=== PATIENT | female | born 1970 | race Caucasian/White ===

== ENCOUNTER 2017-06-01 05:21 | Emergency (ER) | payer OTHER, SELFPAY ==
[2017-06-01] MEDS ORDERED: Ondansetron ODT 4 MG TAB ONE (06:37)
[2017-06-01] MEDS ORDERED: predniSONE 20 MG TAB ONE (06:37)
[2017-06-01] MEDS ORDERED: Ketorolac Tromethamine 30 MG/ML VIAL ONE (06:37)
--- NOTE | 2017-06-01 07:37 | RAD ---
TWO VIEWS OF CHEST: DTAE: 06/01/17. COMPARISON: 02/06/05. HISTORY: Cough and fever. FINDINGS: There is no pneumothorax, pleural fluid, focal consolidation, or alveolar edema. Heart and mediastin al contours are grossly unremarkable. IMPRESSION: No acute findings. POS: [facility]
== END 2017-06-01 07:29 | disposition home or self-care (01) ==
LOC: ERS 05:21
DX: J40 Bronchitis, not specified as acute or chronic (principal); R05 Cough; J02.9 Acute pharyngitis, unspecified; K21.9 Gastro-esophageal reflux disease without esophagitis; J44.9 Chronic obstructive pulmonary disease, unspecified; Z79.899 Other long term (current) drug therapy
CPT/HCPCS: 71046; 87081; 87430; 94640; 96361; 96374; J1885; J7506; J7620; Q0162

== ENCOUNTER 2018-07-18 15:03 | Emergency (ER) | payer OTHER ==
--- NOTE | 2018-07-18 16:25 | RAD ---
LEFT FOREARM TWO VIEWS: History: Left arm injury. FINDINGS/IMPRESSION: Small pockets of gas overlying the volar soft tissues at the level of the mid ulnar shaft. No acute osseous abnormalities or radiopaque foreign bodies are apparent. POS: [facility]
[2018-07-18] MEDS ORDERED: Adacel (T-DAP) 0.5 ML SYRINGE ONE (16:42)
[2018-07-18] MEDS ORDERED: Ibuprofen 200 MG TAB ONE (16:42)
== END 2018-07-18 17:07 | disposition home or self-care (01) ==
LOC: ERS 15:03
DX: S51.812A Laceration without foreign body of left forearm, initial encounter (principal); J44.9 Chronic obstructive pulmonary disease, unspecified; K21.9 Gastro-esophageal reflux disease without esophagitis; W26.0XXA Contact with knife, initial encounter
CPT/HCPCS: 12001; 90471; 90715

== ENCOUNTER 2018-07-28 11:11 | Emergency (ER) | payer OTHER ==
--- NOTE | 2018-07-28 12:18 | RAD ---
PA AND LATERAL VIEWS CHEST: Date: 07/28/18 HISTORY: Cough and shortness of breath. FINDINGS/IMPRESSION: Two views of the chest demonstrate the lungs to be well aerated. No evidence of active intrathoracic disease seen. No evidence of effusions, pneumonia, or pneumothorax seen. POS: [facility]
== END 2018-07-28 12:30 | disposition home or self-care (01) ==
LOC: SCSER 11:11
DX: J45.909 Unspecified asthma, uncomplicated (principal); K21.9 Gastro-esophageal reflux disease without esophagitis; J44.9 Chronic obstructive pulmonary disease, unspecified
CPT/HCPCS: 71046

== ENCOUNTER 2018-09-18 14:48 | Outpatient (CLI) | payer OTHER ==
--- NOTE | 2018-09-18 15:52 | MMO ---
Bilateral MAMMO Bilat Screen DDI+GHANSHYAM. CLINICAL HISTORY: Patient is 48 years old and is seen for screening. The patient has no family history of breast cancer. The patient has no personal history of cancer. VIEWS: The views performed were: bilateral craniocaudal with tomosynthesis and bilateral mediolateral oblique with tomosynthesis. FILMS COMPARED: The present examination has been compared to prior imaging studies performed at [facility] on 09/26/2013 and 06/10/2016, and at [facility] on 07/23/2011. MAMMOGRAM FINDINGS: There are scattered fibroglandular densities. There are no suspicious masses, suspicious calcifications, or new areas of architectural distortion. IMPRESSION: THERE IS NO MAMMOGRAPHIC EVIDENCE OF MALIGNANCY. A ROUTINE FOLLOW-UP MAMMOGRAM IN 1 YEAR IS RECOMMENDED. THE RESULTS OF THIS EXAM WERE SENT TO THE PATIENT. ACR BI-RADS Category 1 - Negative MAMMOGRAPHY NOTE: 1. A negative mammogram report should not delay a biopsy if a dominant of clinically suspicious mass is present. 2. Approximately 10% to 15% of breast cancers are not detected by mammography. 3. Adenosis and dense breasts may obscure an underlying neoplasm.
== END 2018-09-18 14:49 | disposition home or self-care (01) ==
LOC: BICMAMMO 14:48
PROVIDERS: ATTEND Family Medicine
DX: Z12.31 Encounter for screening mammogram for malignant neoplasm of breast (principal)
CPT/HCPCS: 77063; 77067

== ENCOUNTER 2018-12-01 10:24 | Day surgery (SDC) | payer OTHER ==
[2018-11-30 10:21] VITALS: BMI 35.4
--- NOTE | 2018-12-01 11:48 | RAD ---
XR Lumbar Spine 2 Or 3 View HISTORY: Back pain preop COMPARISON: None. FINDINGS: The vertebral bodies are normal in height. Disc spaces appear well preserved. There is no a bnormal motion on the flexion or extension views. Mild facet hypertrophic changes are present. IMPRESSION: No abnormal motion on flexion-extension views. No significant disc space narrowing.
[2018-12-01] MEDS ORDERED: Ondansetron PF 4 MG/2 ML Vial ONE (14:37)
--- NOTE | 2018-12-01 16:47 | MRI ---
MRI OF THE LUMBAR SPINE PERFORMED WITHOUT CONTRAST ENHANCEMENT: 12/01/18 HISTORY: Back pain and radicular symptoms. The vertebral bodies are normal in height. There are disc desiccation changes at L3-4 and L4-5. There is no significant periaortic adenopathy and the visualized portions of the kidneys are normal. T12-L1: Unremarkable. L1-2: Unremarkable. L2-3: There is some mild facet changes but no canal or foraminal stenosis. L3-4: Degenerative facet changes are associated with some borderline canal narrowing. L4-5: There is annular disc bulge with some mild to moderate degree of canal stenosis, mainly related to the degenerative facet changes. There is also mild left sided foraminal narrowing. L5-S1: No significant canal or foraminal stenosis. IMPRESSION: Findings as noted above. Changes appear most significant at L4-5. POS: [facility]
== END 2018-12-01 15:20 | disposition home or self-care (01) ==
LOC: SDC/OP 10:24
PROVIDERS: ATTEND Nurse Practitioner Family
DX: M48.061 Spinal stenosis, lumbar region without neurogenic claudication (principal); M54.16 Radiculopathy, lumbar region; Z88.0 Allergy status to penicillin; Z88.6 Allergy status to analgesic agent; Z88.8 Allergy status to other drugs, medicaments and biological substances; Z79.1 Long term (current) use of non-steroidal anti-inflammatories (NSAID)
CPT/HCPCS: 72100; 72148; J2405

== ENCOUNTER 2019-01-05 20:51 | Emergency (ER) | payer OTHER ==
[~2019-01-05 20:51] MED LIST: Iopamidol 300 61% 100 ML VIAL FS ONE
[2019-01-05] MEDS ORDERED: Ondansetron PF 4 MG/2 ML Vial ONE (21:28)
[2019-01-05 21:48] LABS: Hemoglobin 13.8 g/dL (12.0-16.0); Mean Corpuscular HGB CONC 33.1 g/dL (32.0-36.0); Mean Corpuscular Hemoglobin 28.9 pg (27.0-31.0); Mean Corpuscular Volume 87.5 fL (78.0-98.0); Mean Platelet Volume 7.3 fL (7.4-10.4); Platelet Count 207 thou/uL (130-400); RBC Distribution Width 12.3 % (11.5-14.5); Red Blood Cell (RBC) Count 4.77 mill/uL (4.20-5.40)
[2019-01-05 21:49] LABS: ALT (SGPT) 28 U/L (8-55); AST (SGOT) 25 U/L (5-34); Albumin 4.1 g/dL (3.5-5.0); Alkaline Phosphatase 64 U/L (40-150); Anion Gap 13 mmol/L (10-20); BUN (Urea Nitrogen) 18 mg/dL (7.0-18.7); Band 1 % (5-11); Bilirubin, Total 0.4 mg/dL (0.2-1.2); CK (CPK) 306 U/L (29-168); Calc. Creatinine Clearance 0 mL/min (70-130); Carbon Dioxide 23 mmol/L (22-29); Chloride 109 mmol/L (98-107); Estimated GFR-MDRD 83; Globulin 2.6 g/dL (2.4-3.5); Glucose 101 mg/dL (70-105); Lipase 15 U/L (8-78); Lymphocytes 37 % (21-51); MDiff Complete? YES; Monocytes 4 % (0-10); Neutrophil 58 % (42-75); Potassium 3.7 mmol/L (3.5-5.1); Protein, Total 6.7 g/dL (6.0-8.3); Sodium 141 mmol/L (136-145)
[2019-01-05 22:42] LABS: Bilirubin Negative (Negative); Blood, Urine Moderate (Negative); Clarity Clear (Clear); Glucose, Urine (Dipstick) Negative (Negative); Leukocyte Negative (Negative); Nitrite Negative (Negative); Protein, Urine (Dipstick) Negative (Neg-Trace); Urobilinogen 0.2 mg/dL (Less than 2)
[2019-01-05 22:43] LABS: Bacteria/HPF None Seen HPF (None Seen); Mucous/LPF 1+ LPF (<2+); Squamous Epithelial 0-3 HPF (0-3); WBC/HPF 0-3 HPF (0-3)
--- NOTE | 2019-01-05 22:53 | CT ---
CT ABDOMEN WITH CONTRAST CT PELVIS WITH CONTRAST: DATE: 01/05/19 at 10:21 p.m. HISTORY: 48-year-old female with left sided abdominal pain, nausea, and vomiting. COMPARISON: 07/24/13. TECHNIQUE: IV injection of iodinated contrast media: 90 mL of Isovue 300. Oral contrast media: Not administered. FINDINGS: There is a new finding of a few bilateral small renal calculi. The largest is a 4 x 3 x 4 mm calculus at a right renal mid pole calyx. There are two 2 mm right renal calculi, one at the right lower pole and one at right upper-mid pole. There is a tiny 2 mm left renal upper pole calculus. No hydronephro sis. No signs of pyelonephritis. Abdominal aorta, adrenals, pancreas, spleen, liver, appendix, and ur inary bladder, are normal. Surgical clips at the gallbladder fossa. Sigmoid colonic diverticula. No d efinite evidence of diverticulitis. No small bowel dilation. No ascites or pneumoperitoneum. There is questionable diffuse mural edema of the colon, from hepatic flexure to rectum, but it is difficult t o definitively diagnose colitis because the colonic lumen is collapsed. IMPRESSION: 1. Questionable colitis. Recommend clinical correlation (is there diarrhea?). 2. No colonic diverticulitis. 3. Nephrolithiasis consisting of a few small bilateral renal calculi. No obstructive uropathy. 4. Status post cholecystectomy. DESHAWN Crawford POS: [facility]
[2019-01-05] MEDS ORDERED: Dicyclomine 20 MG TAB ONE (23:05)
== END 2019-01-05 23:12 | disposition home or self-care (01) ==
LOC: SCSER 20:51
DX: R11.2 Nausea with vomiting, unspecified (principal); R19.7 Diarrhea, unspecified; R31.9 Hematuria, unspecified; J44.9 Chronic obstructive pulmonary disease, unspecified; K21.9 Gastro-esophageal reflux disease without esophagitis
CPT/HCPCS: 74177; 80053; 81003; 81015; 82550; 83690; 85025; 96361; 96374; J2405

== ENCOUNTER 2019-04-02 00:34 | Emergency (ER) | payer OTHER ==
[2019-04-02] MEDS ORDERED: Ketorolac Tromethamine 30 MG/ML VIAL ONE (00:50)
[2019-04-02 01:18] LABS: Bilirubin Negative (Negative); Blood, Urine Small (Negative); Clarity Clear (Clear); Glucose, Urine (Dipstick) Negative (Negative); Leukocyte Negative (Negative); Nitrite Negative (Negative); Protein, Urine (Dipstick) Negative (Neg-Trace); Urobilinogen 0.2 mg/dL (Less than 2)
[2019-04-02 01:19] LABS: Pregnancy Test - Urine (BHCG) Negative (Negative); Pregu Control Background? CLEAR/WHITE (CLR/WHITE); Pregu Control Bar Appear? YES (CONTROL BAR); Specific Gravity 1.025 (1.002-1.036)
[2019-04-02 01:21] LABS: Squamous Epithelial 0-3 HPF (0-3); WBC/HPF 0-3 HPF (0-3)
[2019-04-02 01:22] LABS: #Basophils 0.1 thou/uL (0.0-0.2); #Eosinphils 0.2 thou/uL (0.0-0.7); #Lymphocytes 3.2 thou/uL (1.20-3.40); #Monocytes 0.6 thou/uL (0.11-0.59); %Basophils 1.3 % (0.0-1.0); %Eosinophils 2.7 % (0.0-10.0); %Lymphocytes 44.9 % (21.0-51.0); %Monocytes 8.6 % (0.0-10.0); %Neutrophils 42.5 % (42.0-75.0); Bacteria/HPF Rare-Few HPF (None Seen); Hemoglobin 14.2 g/dL (12.0-16.0); Mean Corpuscular Hemoglobin 29.4 pg (27.0-31.0); Mean Corpuscular Volume 89.2 fL (78.0-98.0); Mean Platelet Volume 7.5 fL (7.4-10.4); Platelet Count 226 thou/uL (130-400); RBC Distribution Width 12.4 % (11.5-14.5); Red Blood Cell (RBC) Count 4.84 mill/uL (4.20-5.40); White Blood Cell (WBC) Count 7.1 thou/uL (4.8-10.8)
[2019-04-02 01:30] LABS: ALT (SGPT) 36 U/L (8-55); AST (SGOT) 31 U/L (5-34); Albumin 4.2 g/dL (3.5-5.0); Alkaline Phosphatase 78 U/L (40-110); Anion Gap 14 mmol/L (10-20); BUN (Urea Nitrogen) 20 mg/dL (7.0-18.7); Bilirubin, Total 0.2 mg/dL (0.2-1.2); Calc. Creatinine Clearance 0 mL/min (70-130); Calcium 10.1 mg/dL (7.8-10.44); Carbon Dioxide 23 mmol/L (22-29); Chloride 110 mmol/L (98-107); Estimated GFR-MDRD 85; Globulin 2.6 g/dL (2.4-3.5); Glucose 122 mg/dL (70-105); Lipase 26 U/L (8-78); Potassium 4.3 mmol/L (3.5-5.1); Protein, Total 6.8 g/dL (6.0-8.3); Sodium 143 mmol/L (136-145)
[2019-04-02] MEDS ORDERED: Ondansetron PF 4 MG/2 ML Vial ONE (01:39)
[2019-04-02] MEDS ORDERED: Mag-Al Plus 1200 MG/1200 MG/120 MG/30 ML UDCUP ONE (02:13)
[2019-04-02] MEDS ORDERED: Lidocaine Viscous Sol 2% 15 ml UD Cup ONE (02:13)
--- NOTE | 2019-04-02 08:35 | CT ---
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 No bowel or bladder dysfunction, PT reports some dysuria. No n/v. HX of prior kidney stone. TECHNIQUE: Imaging protocol: Computed tomography of the abdomen and pelvis without contrast. COMPARISON: No relevant prior studies available. FINDINGS: Lungs: The visualized portions of the lung bases are normal. Mediastinum: A small hiatal hernia is present. Liver: There are no focal liver lesions identified. Gallbladder and bile ducts: There has been a cholecystectomy. Pancreas: Normal. No ductal dilation. Spleen: The spleen is normal. Adrenals: The adrenal glands are normal. Kidneys and ureters: There are nonobstructing calculi within the bilateral renal collecting systems. Stomach and bowel: The stomach is normal. The duodenum is unremarkable. The colon is normal. Appendix: A normal appendix is identified. Intraperitoneal space: Unremarkable. No free air. No significant fluid collection. Vasculature: Unremarkable. No abdominal aortic aneurysm. Lymph nodes: Unremarkable. No enlarged lymph nodes. Bladder: The bladder is normal. Reproductive: The uterus is normal. Bones/joints: Unremarkable. No acute fracture. Soft tissues: Unremarkable. IMPRESSION: 1. No acute abdominal pelvic pathology. 2. There are bilateral nonobstructing renal pelvic calculi. Thank you for allowing us to participate in the care of your patient. Dictated and Authenticated by: Kennedy Cordero MD 04/02/2019 1:58 AM Central Time ([place] & [place]) FINAL REPORT ABDOMEN CT WITHOUT CONTRAST PELVIC CT WITHOUT CONTRAST: COMPARISON: 11/03/2010, 01/05/2019. HISTORY: Bilateral flank pain. FINDINGS: This report is in agreement with the preliminary report by [facility]. There are bilateral nonobstructing i ntrarenal calculi. Bilaterally, no evidence of obstructive uropathy. Normal-caliber appendix. No e vidence of bowel obstruction Grossly, the solid organs are unremarkable. Gallbladder is surgically absent. Diverticulosis. POS: OFF
== END 2019-04-02 02:56 | disposition home or self-care (01) ==
LOC: SCSER 00:34
DX: K29.00 Acute gastritis without bleeding (principal); J44.9 Chronic obstructive pulmonary disease, unspecified; K21.9 Gastro-esophageal reflux disease without esophagitis; Z87.442 Personal history of urinary calculi
CPT/HCPCS: 74176; 80053; 81003; 81015; 81025; 83690; 84484; 85025; 93005; 96361; 96372; 96374; 96375; J0500; J1885; J2270; J2405

== ENCOUNTER 2019-05-18 05:46 | Day surgery (SDC) | payer OTHER ==
[2019-05-17 11:15] VITALS: BMI 33.5
[2019-05-18] MEDS ORDERED: PROPOFOL 200 MG/20 ML VIAL ONE (11:03)
--- NOTE | 2019-05-18 11:05 | OP ---
DATE OF PROCEDURE: 05/18/2019 PROCEDURE PERFORMED: Esophagogastroduodenoscopy with biopsy. PREOPERATIVE DIAGNOSIS: A 49-year-old female with abdominal pain, was persistent over the last 2 years. This pain is postprandial. The pain is over the epigastric area and across the abdomen. The patient has been on Protonix without much improvement. The patient undergoing esophagogastroduodenoscopy. POSTOPERATIVE DIAGNOSES: 1. Normal esophageal mucosa. 2. Distal esophageal ring, nonobstructing. 3. Three small gastric polyps of the gastric body. 4. Otherwise normal esophagogastroduodenoscopy. There was no pathology seen to explain abdominal pain. DESCRIPTION OF PROCEDURE: The patient was placed on her left lateral position and was given sedation by Anesthesia Department. A Pentax video gastroscope under direct vision passed down the oropharynx, past the GE junction into the stomach and subsequently into the descending duodenum. The vocal cords appeared very healthy. The esophageal mucosa appeared normal throughout the esophagus. In the GE junction there was a esophageal ring and it was was wide open and nonobstructing. Retroflexion of scope in the stomach failed to show any pathology in fundus or cardia. The patient had 3 gastric polyps over the gastric body. The polyps appeared benign. They were biopsied. The incisura angularis and gastric antrum showed mucosal hyperemia. In the duodenal bulb and descending duodenum, no lesions. The stomach decompressed, and the scope removed. DISCHARGE PLANNING: This is a 49-year-old female came to see me for abdominal pain, which is persistent over the last 2 years. The pain is postprandial and is over the epigastric area. The patient has a previous cholecystectomy. The patient underwent EGD and was found to have gastric polyps, otherwise the exam was normal. DISCHARGE RECOMMENDATIONS: 1. Continue Pantoprazole and Bentyl. 2. Await gastric biopsy. 3. To come back to clinic in 2 weeks. Job ID: [id number] [facility]
== END 2019-05-18 10:35 | disposition home or self-care (01) ==
LOC: SDC 05:46
PROVIDERS: ATTEND Internal Medicine Gastroenterology
PROC: 0DB68ZX Excision of Stomach, Via Natural or Artificial Opening Endoscopic, Diagnostic (ICD-10-PCS; principal; 2019-05-18)
DX: K31.7 Polyp of stomach and duodenum (principal); Z88.0 Allergy status to penicillin; Z88.6 Allergy status to analgesic agent; Z88.8 Allergy status to other drugs, medicaments and biological substances
CPT/HCPCS: 88305; 88312; J2704

== ENCOUNTER 2019-10-31 07:27 | Outpatient (CLI) | payer OTHER ==
--- NOTE | 2019-10-31 08:52 | ULT ---
RIGHT LOWER EXTREMITY VENOUS DUPLEX EXAM: HISTORY: Right leg pain and swelling. FINDINGS: Real-time color Doppler evaluation of the right lower extremity was performed from groin to calf. Th is includes evaluation of the common femoral, superficial, and profunda femoral, saphenous, popliteal , and posterior tibial veins. This shows a patent deep venous system. There is normal compressibili ty and augmentation. There is no evidence of DVT. IMPRESSION: No evidence of deep vein thrombosis of the right lower extremity. POS: [facility]
--- NOTE | 2019-10-31 09:13 | MMO ---
Bilateral MAMMO Bilat Screen [facility]. CLINICAL HISTORY: Patient is 49 years old and is seen for screening. The patient has no family history of breast cancer. The patient has no personal history of cancer. VIEWS: The views performed were: bilateral craniocaudal with tomosynthesis and bilateral mediolateral oblique with tomosynthesis. FILMS COMPARED: The present examination has been compared to prior imaging studies performed at [facility] on 09/26/2013, 06/10/2016 and 09/18/2018, and at [facility] on 07/23/2011. This study has been interpreted with the assistance of computer-aided detection. MAMMOGRAM FINDINGS: There are scattered fibroglandular densities. There are no suspicious masses, calcifications or areas of architectural distortion. Benign calcifications are noted bilaterally. There are no suspicious masses, suspicious calcifications, or new areas of architectural distortion. IMPRESSION: THERE IS NO MAMMOGRAPHIC EVIDENCE OF MALIGNANCY. A ROUTINE FOLLOW-UP MAMMOGRAM IN 1 YEAR IS RECOMMENDED. THE RESULTS OF THIS EXAM WERE SENT TO THE PATIENT. ACR BI-RADS Category 2 - Benign finding MAMMOGRAPHY NOTE: 1. A negative mammogram report should not delay a biopsy if a dominant of clinically suspicious mass is present. 2. Approximately 10% to 15% of breast cancers are not detected by mammography. 3. Adenosis and dense breasts may obscure an underlying neoplasm. Reported by: ISABELLA ALTAMIRANO MD Electonically Signed: [id number]
== END 2019-10-31 07:28 | disposition home or self-care (01) ==
LOC: ULT 07:27
PROVIDERS: ATTEND Family Medicine
DX: Z12.31 Encounter for screening mammogram for malignant neoplasm of breast (principal); R60.0 Localized edema
CPT/HCPCS: 77063; 77067

== ENCOUNTER 2020-03-08 08:29 | Emergency (ER) | payer OTHER ==
[2020-03-08] MEDS ORDERED: Dexamethasone 4 MG TAB ONE (08:45)
[2020-03-08 09:20] LABS: Bacteria/HPF None Seen HPF (None Seen); Bilirubin Negative (Negative); Blood, Urine 2+ (Negative); Clarity Clear (Clear); Glucose, Urine (Dipstick) Normal (Negative); Ketone, Urine Negative (Negative); Leukocyte 75 Leu/uL (Negative); Mucous/LPF 1+ LPF (<2+); Nitrite Negative (Negative); Protein, Urine (Dipstick) Negative (Neg-Trace); RBC/HPF 21-50 HPF (0-3); Specific Gravity, Urine 1.018 (1.002-1.036); Squamous Epithelial 0-3 HPF (0-3); Urobilinogen Normal mg/dL (Less than 2); pH, Urine 6.5 (5.0-9.0)
== END 2020-03-08 09:36 | disposition home or self-care (01) ==
LOC: ERS 08:29
DX: J06.9 Acute upper respiratory infection, unspecified (principal); N30.90 Cystitis, unspecified without hematuria; K21.9 Gastro-esophageal reflux disease without esophagitis; J44.9 Chronic obstructive pulmonary disease, unspecified
CPT/HCPCS: 81003; 81015; 99283; J8540

== ENCOUNTER → 2020-04-06 | Day surgery (SDC) | payer OTHER ==
[~2020-04-06] MED LIST changes: +Dexamethasone 20 MG/5 ML VIAL ONE; +Fentanyl 100 MCG/2 ML VIAL ONE; -Iopamidol 300 61% 100 ML VIAL FS ONE; +Iopamidol-370 76% 500 ML 1 ML ONE; +Iothalamate Meglumine 60% 50 ML VIAL FS ONE; +Lidocaine 1% PF 5 ML VIAL ONE; +Midazolam HCl 2 mg/2 ml Vial ONE; +Morphine 4 MG/ML VIAL ONE; +Ondansetron PF 4 MG/2 ML Vial ONE; +PROPOFOL 200 MG/20 ML VIAL ONE; +Succinylcholine 200 MG/10 ml SYRINGE FS ONE; +Vancomycin 1 GM/200 ML BAG ONE; +cefTRIAXone\\ROCEPHIN 2 GM VIAL ONE; +ePHEDrine 50 MG/ML VIAL ONE; +traMADol HCl 50 MG TAB ONE
[2020-04-06 20:11] LABS: #Lymphocytes 1.8 thou/uL (1.20-3.40); #Monocytes 0.5 thou/uL (0.11-0.59); #Neutrophils 8.2 thou/uL (1.40-6.50); %Eosinophils 0.3 % (0.0-10.0); %Lymphocytes 17.2 % (21.0-51.0); %Monocytes 4.5 % (0.0-10.0); %Neutrophils 78.1 % (42.0-75.0); Hemoglobin 14.4 g/dL (12.0-16.0); Mean Corpuscular HGB CONC 32.8 g/dL (32.0-36.0); Mean Corpuscular Hemoglobin 29.6 pg (27.0-31.0); Mean Corpuscular Volume 90.3 fL (78.0-98.0); Mean Platelet Volume 7.1 fL (7.4-10.4); Platelet Count 265 thou/uL (130-400); Red Blood Cell (RBC) Count 4.88 mill/uL (4.20-5.40); White Blood Cell (WBC) Count 10.5 thou/uL (4.8-10.8)
[2020-04-06 20:31] LABS: ALT (SGPT) 32 U/L (8-55); AST (SGOT) 34 U/L (5-34); Alkaline Phosphatase 61 U/L (40-110); Anion Gap 14 mmol/L (10-20); BUN (Urea Nitrogen) 20 mg/dL (7.0-18.7); Bilirubin, Total 0.5 mg/dL (0.2-1.2); Calc. Creatinine Clearance 0 mL/min (70-130); Carbon Dioxide 24 mmol/L (22-29); Chloride 108 mmol/L (98-107); Globulin 2.8 g/dL (2.4-3.5); Glucose 126 mg/dL (70-105); Potassium 4.2 mmol/L (3.5-5.1); Protein, Total 6.8 g/dL (6.0-8.3); Sodium 142 mmol/L (136-145)
[2020-04-06 20:54] LABS: Pregnancy Test - Urine (BHCG) Negative (Negative); Pregu Control Background? CLEAR/WHITE (CLR/WHITE); Pregu Control Bar Appear? YES (CONTROL BAR); Specific Gravity 1.027 (1.002-1.036)
[2020-04-06 20:56] LABS: Bilirubin Negative (Negative); Blood, Urine 3+ (Negative); Clarity Turbid (Clear); Glucose, Urine (Dipstick) Normal (Negative); Ketone, Urine Trace mg/dL (Negative); Leukocyte 250 Leu/uL (Negative); Mucous/LPF 1+ LPF (<2+); Nitrite Negative (Negative); Protein, Urine (Dipstick) 50 mg/dL (Neg-Trace); RBC/HPF Greater than 50 HPF (0-3); Specific Gravity, Urine 1.027 (1.002-1.036); Squamous Epithelial 0-3 HPF (0-3); Urobilinogen Normal mg/dL (Less than 2); WBC/HPF 21-50 HPF (0-3); pH, Urine 5.5 (5.0-9.0)
[2020-04-06 21:10] LABS: Bacteria/HPF 1+ HPF (None Seen)
--- NOTE | 2020-04-06 22:41 | CT ---
CT Abdomen Pelvis W Con: 04/06/2020 10:14 PM CLINICAL INFORMATION: Right low back pain radiating to the right lower abdomen and suprapubic region COMPARISON: 01/05/2019, 04/02/2019 TECHNIQUE: Multiple contiguous axial images were obtained and a CT of the abdomen and pelvis with IV contrast. C oronal and sagittal reformats were performed. FINDINGS: Lower Chest: within normal limits. Abdomen: Liver: within normal limits. Bile Ducts: Normal caliber. Gallbladder: Removed. Pancreas: within normal limits. Spleen: within normal limits. Adrenals: within normal limits. Kidneys: Mild right hydronephrosis. Nonobstructing calcifications are seen in the both kidneys measur ing up to 3 mm in size. No left hydronephrosis. Pelvis: Reproductive Organs: No pelvic masses. Ureters: 6 mm proximal right ureteral calcification with mild enlargement of the proximal right urete r Bladder: within normal limits. Peritoneum: No ascites or free air, no fluid collection. Bowel: Normal caliber. Scattered diverticula in the colon. Normal appendix. Mesentery and Retroperitoneum: No enlarged mesenteric or retroperitoneal lymph nodes. Vessels: Normal. Abdominal Wall: Right gluteal injection granuloma. Bones: Within normal limits IMPRESSION: 1. Proximal right ureteral calcification with mild right hydronephrosis 2.. Additional nonobstructing bilateral renal calcifications.
--- NOTE | 2020-04-07 01:02 | CON ---
DATE OF CONSULTATION: 04/06/2020 HISTORY OF PRESENT ILLNESS: This is a 49-year-old white female, with acute onset of right flank pain radiating to the right lower quadrant this afternoon, became intense, associated with nausea and vomiting and some chills, no documented fever. She had a history of a left stone in 2013. Dr. Summers saw and did a ureteroscopy, did not find a stone. I am assuming it was probably passed, but did have a stent placed with a string left attached and had the stent removed in his office. She has received Rocephin and vancomycin because of a urinalysis that showed 21 to 50 white cells, 1+ bacteria, many red cells but no epithelial cells. She was feeling much more comfortable and her blood pressure which was high when she came in, has come back to normal. ALLERGIES: SHE HAS ALLERGIES TO BENADRYL, PENICILLINS, AND TYLENOL. MEDICATIONS: None routine, but occasional Motrin. PAST SURGICAL HISTORY: Includes cholecystectomy, left ureteroscopy with stent placement, and bilateral tubal ligation. She does have a history of UTIs with gross hematuria, cared for by family doctor. She has no diabetes or hypertension. Occasional reflux disease and there maybe history of some asthma. PHYSICAL EXAMINATION: HEENT: Negative. NECK: Negative. LUNGS: Clear. HEART: Without murmur. ABDOMEN: Right upper quadrant tenderness. No rebound. No guarding. Abdomen is soft. EXTREMITIES: Negative. LABORATORY WORK: Including chemical survey is normal with a creatinine of 1 and a potassium of 4.2. Normal CBC. Her CAT scan shows a 6 mm right proximal ureteral stone, has some small less than or equal to 3 mm bilateral renal stones. The plan at this time will be a cysto and right stent placement. If her urine proximal to the stone is clear, she will go home on some oral Cipro. If it is cloudy, she may be admitted overnight. Job ID: [id number]
[2020-04-07 01:10] LABS: Bacteria/HPF None Seen HPF (None Seen); Bilirubin Negative (Negative); Blood, Urine 1+ (Negative); Clarity Clear (Clear); Glucose, Urine (Dipstick) Normal (Negative); Ketone, Urine Negative (Negative); Leukocyte Negative Leu/uL (Negative); Nitrite Negative (Negative); Protein, Urine (Dipstick) Negative (Neg-Trace); Specific Gravity, Urine 1.041 (1.002-1.036); Squamous Epithelial 0-3 HPF (0-3); Urobilinogen Normal mg/dL (Less than 2); WBC/HPF 0-3 HPF (0-3); pH, Urine 6.5 (5.0-9.0)
--- NOTE | 2020-04-07 01:36 | OP ---
DATE OF PROCEDURE: 04/06/2020 PREOPERATIVE DIAGNOSIS: Right proximal ureteral stone and urinary tract infection. POSTOPERATIVE DIAGNOSIS: Right proximal ureteral stone and urinary tract infection. PROCEDURES PERFORMED: Cystoscopy, right RPG and right stent placement stent. We also did in and out catheterization prior to the start of the case for urinalysis. SPECIMENS REMOVED: None. FINDINGS: She had right proximal hydro with a filling defect about a third [address] way down the right ureter. The urine obtained from the right kidney proximal the stone was clear. We did get a cath urine at the start of the case to sent for urinalysis. DESCRIPTION OF PROCEDURE: After obtaining written and verbal consent from the patient after making sure she received her IV antibiotics, she was taken to the operative suite. She was placed in a supine position on the treatment table. PlexiPulses were placed on her lower extremities and turned on. She was given a general anesthetic and oral obturator intubation, placed in the dorsal lithotomy position and sterilely prepped and draped. C-arm was brought in. Solar Technician film was obtained. There was contrast coming down the right ureter with right hydronephrosis, some contrast going by, a filling defect in the right proximal ureter. Cystoscopy was performed with a 22-Grenadian. This was well lubricated, passed under direct vision through the female urethra into the urinary bladder with aid of a 30-degree lens and video camera and monitor. The bladder was examined with both a 30 and a 70-degree lens. Cone-tipped catheter was advanced in the right ureteral orifice. Contrast injected in a retrograde manner filling out more clearly the lower 2/3 of the ureter and the proximal 1/3 in the filling defect, where the stone was. At this point the open-ended catheter was pushed up into the region of the renal pelvis and it drained about 10 cc of clear urine. The guidewire was replaced and the stent was placed over the guidewire and pushed up to place a pusher, so its proximal end coiled in the renal pelvis and its distal end coiled in the bladder when the wire was removed. The bladder was drained. The instruments were removed. There was a delay of probably 15 or 20 minutes during the case, where the C-arm was not initially working. Once this was clear, there were no further delays. The patient was awakened, extubated, and taken by stretcher to recovery room. Job ID: [id number] [facility]
[2020-04-07 05:34] LABS: SARS-CoV-2 MS2 Positive; SARS-CoV-2 N Gene Negative; SARS-CoV-2 S Gene Negative; SARS-CoV-2 by NAA Not Detected (NotDetected); SARS-CoV-2 orf1ab Negative
--- NOTE | 2020-04-07 08:13 | RAD ---
EXAM: XR IVP Retrograde DATE: 04/06/2020 11:30 PM INDICATION: Abdominal pain and history of stent placement COMPARISON: CT the abdomen and pelvis with contrast dated April 06, 2020 FINDIN total images are submitted from a retrograde IVP. Initial image demonstrates the proximal right ureteral calculus measuring 6 mm, seen on the prior CT examination. There is some moderate hydronephrosis present with contrast filling the renal collecting system likely from the prior CT examination. Subsequent image demonstrates cannula placeme nt within the bladder and localization of the right ureter with retrograde opacification demonstrating the stone as a filling defect within the proximal right ureter. There is persistent mod erate hydronephrosis. Subsequent images demonstrate placement of a wire, traversing the region of the proximal right ureteral stone and projecting into the superior calyx of the right renal collectin g system. Additionally there is removal of the right ureteral stone and placement of a right ureteral stent. Final submitted image demonstrates the double-J ureteral stent positioning in the rig ht renal collecting system to be in the expected location with a mild amount of residual contrast within the right renal collecting system. IMPRESSION:Removal right ureteral stone and placement of a right ureteral stent with mild residual ri ght-sided hydronephrosis
--- NOTE | 2020-04-12 15:29 | EKG ---
Test Reason : Blood Pressure : / mmHG Vent. Rate : 052 BPM Atrial Rate : 052 BPM P-R Int : 162 ms QRS Dur : 126 ms QT Int : 438 ms P-R-T Axes : 041 027 014 degrees QTc Int : 407 ms Sinus bradycardia Right bundle branch block Abnormal ECG Confirmed by KINGA LLAMAS, BROCK Johnston ([id number]), international editorial producer GAL HONG ([id number] on 04/12/2020 3:29:16 PM Referred By: Confirmed By:BROCK DONATO MD
== END ==
LOC: ERS 19:38 → SDC/OP 23:44
PROVIDERS: ATTEND Urology
PROC: 0T768DZ Dilation of Right Ureter with Intraluminal Device, Via Natural or Artificial Opening Endoscopic (ICD-10-PCS; principal; 2020-04-06)
DX: N13.2 Hydronephrosis with renal and ureteral calculous obstruction (principal); Z88.0 Allergy status to penicillin; Z88.6 Allergy status to analgesic agent; Z88.8 Allergy status to other drugs, medicaments and biological substances
CPT/HCPCS: 36415; 74177; 74420; 80053; 81001; 81003; 81015; 81025; 83690; 85025; 87077; 87086; 87635; 93005; 96365; 96368; 96375; J0696; J1100; J2250; J2270; J2405; J2704; J3010; J3370; J3490; Q9967; U0003

== ENCOUNTER 2020-04-09 07:13 | Emergency (ER) | payer OTHER ==
[2020-04-09] MEDS ORDERED: Ketorolac Tromethamine 30 MG/ML VIAL ONE (07:47)
[2020-04-09] MEDS ORDERED: Ondansetron PF 4 MG/2 ML Vial ONE (08:04)
[2020-04-09] MEDS ORDERED: Morphine 4 MG/ML VIAL ONE ×2 (08:04→10:48)
[2020-04-09 08:10] LABS: #Basophils 0.1 thou/uL (0.0-0.2); #Eosinphils 0.2 thou/uL (0.0-0.7); #Lymphocytes 2.4 thou/uL (1.20-3.40); #Monocytes 0.6 thou/uL (0.11-0.59); #Neutrophils 3.3 thou/uL (1.40-6.50); %Basophils 0.8 % (0.0-1.0); %Eosinophils 3.2 % (0.0-10.0); %Lymphocytes 36.6 % (21.0-51.0); %Monocytes 9.7 % (0.0-10.0); %Neutrophils 49.7 % (42.0-75.0); Mean Corpuscular HGB CONC 34.3 g/dL (32.0-36.0); Mean Corpuscular Volume 90.3 fL (78.0-98.0); Mean Platelet Volume 7.3 fL (7.4-10.4); Platelet Count 233 thou/uL (130-400); RBC Distribution Width 11.9 % (11.5-14.5); Red Blood Cell (RBC) Count 4.51 mill/uL (4.20-5.40); White Blood Cell (WBC) Count 6.6 thou/uL (4.8-10.8)
[2020-04-09 08:46] LABS: Bacteria/HPF None Seen HPF (None Seen); Bilirubin Negative (Negative); Blood, Urine 2+ (Negative); Clarity Turbid (Clear); Glucose, Urine (Dipstick) Normal (Negative); Ketone, Urine Negative (Negative); Leukocyte 25 Leu/uL (Negative); Nitrite Negative (Negative); Protein, Urine (Dipstick) 200 mg/dL (Neg-Trace); RBC/HPF Greater than 50 HPF (0-3); Specific Gravity, Urine 1.021 (1.002-1.036); Squamous Epithelial 0-3 HPF (0-3); Urobilinogen Normal mg/dL (Less than 2)
--- NOTE | 2020-04-09 08:53 | CT ---
Exam: Abdomen CT without contrast Pelvic CT without contrast HISTORY: Worsening right flank pain. Recent right ureteral stent placement. COMPARISON: 04/06/2020 FINDINGS: Abdomen CT: Lung bases:Clear Heart size: Normal heart size Aorta: Normal caliber Solid organs: No abnormality. No change. Lymph nodes: No gastrohepatic, retrocrural or periportal lymphadenopathy Gallbladder: Surgically absent Mesentery: No mass, lymphadenopathy, free air or free fluid Kidneys: 0.2 cm nonspecific calculus in the left kidney. No evidence of left-sided obstructive uropat hy. Interval placement of a right-sided ureteral stent, appropriately positioned. There is a nonobstructi ng 0.5 cm calculus in the lower pole intrarenal collecting system. There are 2 separate calculi along the proximal right ureter measuring 0.5 and 0.3 cm in the craniocaudal dimension. There is stra nding of the right ureter. Alimentary canal: Normal caliber appendix. No bowel obstruction. Diverticulosis, without evidence of diverticulitis CT PELVIS: No mass, adenopathy, free air or free fluid. Urinary bladder: Decompressed. No evidence of bladder calculi Osseous structures: No lytic or blastic lesions IMPRESSION: 1. There is evidence of right-sided obstructive uropathy secondary to 2 calculi noted in the right ur eter. There is an appropriate position right-sided ureteral stent. Note, the previous exam there are 2 calculi in the right intrarenal collecting system. One of the 2 calculi has subsequently migrat ed along the right ureter.
[2020-04-09 09:51] LABS: ALT (SGPT) 24 U/L (8-55); AST (SGOT) 27 U/L (5-34); Albumin 3.8 g/dL (3.5-5.0); Alkaline Phosphatase 53 U/L (40-110); BUN (Urea Nitrogen) 20 mg/dL (7.0-18.7); Bilirubin, Total 0.5 mg/dL (0.2-1.2); Calc. Creatinine Clearance 0 mL/min (70-130); Calcium 9.2 mg/dL (7.8-10.44); Carbon Dioxide 24 mmol/L (22-29); Chloride 107 mmol/L (98-107); Estimated GFR-MDRD 73; Globulin 2.6 g/dL (2.4-3.5); Glucose 113 mg/dL (70-105); Potassium 3.7 mmol/L (3.5-5.1); Protein, Total 6.4 g/dL (6.0-8.3); Sodium 140 mmol/L (136-145)
[2020-04-09 10:01] LABS: Anion Gap 13 mmol/L (10-20)
--- NOTE | 2020-04-09 14:59 | CON ---
DATE OF CONSULTATION: 04/09/2020 This is a 49-year-old female who was in this weekend with right flank pain and a possible UTI in the middle of night on late Tuesday or early Tuesday morning. She had a right stent placement. We did a cathed urine on her before we did the cystoscope and that urinalysis was basically normal. Her urine culture grew out less than 5000 of group B Strep. She went home on some Cipro and some tramadol. She has taken just one tramadol other times. She came back in because she was having increasing pain in the right flank. It was a little bit worse when she stands or walks, also worse when her bladder is full and she does have urinary frequency. She is not running a fever or chills. She is not throwing up, just uncomfortable. She had a repeat CAT scan done, it was a noncontrast film. I reviewed that and I do not see any significant hydronephrosis. The stent appears to be in good position. She has 2 stones in the proximal ureter and a tiny stone in the right kidney. Her white count is normal. Her creatinine is normal. Vital signs are stable. She has tenderness in the right upper quadrant. She has some even in the left upper quadrant. She is mildly distended. She reports she has not had a bowel movement for 4 days now either. I think that her pain is somewhat related to her stent, the frequency to go is the pain when her bladder is full or when she starts urinating certainly as I am not sure the rest of the discomfort she is having this from that or not. I did tell her that we could offer her exchange of the stent for a slightly smaller diameter one, so I am not very confident that would help her symptoms, but it is possible that it could. She is not desiring to do that. I did tell her we have her set up to treat the stone this coming Tuesday, but really cannot treat it prior to that. Because she did not have urinary tract infection of any significance, she can just take the Cipro just once a day now just prophylactically while the stents and I think she should take 2 tramadol at a time rather than 1 and this may help with some of her discomfort. I do think she may benefit from help with her constipation and I have asked the nurse to have the ER doctor address that. She can stop at my office today and I will go ahead and give her some samples of Myrbetriq, which may help with her urinary frequency. We will set her up for the next week to treat the stone. Job ID: [id number]
== END 2020-04-09 13:17 | disposition home or self-care (01) ==
LOC: ERS 07:13
DX: N20.2 Calculus of kidney with calculus of ureter (principal); N13.9 Obstructive and reflux uropathy, unspecified; K21.9 Gastro-esophageal reflux disease without esophagitis; J44.9 Chronic obstructive pulmonary disease, unspecified
CPT/HCPCS: 74176; 80053; 81003; 81015; 85025; 87086; 96361; 96374; 96375; 96376; J1885; J2270; J2405

== ENCOUNTER 2020-04-10 10:49 | Outpatient (CLI) | payer OTHER ==
[2020-04-10 17:34] LABS: INR-International Normal Ratio 1.1; PTT 27.3 sec (22.0-33.0); Prothrombin Time 11.5 sec (9.5-12.1)
[2020-04-11 04:28] LABS: SARS-CoV-2 MS2 Positive; SARS-CoV-2 N Gene Negative; SARS-CoV-2 S Gene Negative; SARS-CoV-2 by NAA Not Detected (NotDetected); SARS-CoV-2 orf1ab Negative
== END 2020-04-10 10:50 | disposition home or self-care (01) ==
LOC: LABBT 10:49
PROVIDERS: ATTEND Urology
DX: Z01.812 Encounter for preprocedural laboratory examination (principal); Z20.828 Contact with and (suspected) exposure to other viral communicable diseases; N20.1 Calculus of ureter
CPT/HCPCS: 85610; 85730; 87635; U0003

== ENCOUNTER 2020-04-14 08:47 | Day surgery (SDC) | payer OTHER ==
[2020-04-14] MEDS ORDERED: Metoclopramide HCl 10 MG/2 ML VIAL ONE (10:09)
[2020-04-14] MEDS ORDERED: Dexamethasone 20 MG/5 ML VIAL ONE (10:09)
[2020-04-14] MEDS ORDERED: Lidocaine 1% PF 5 ML VIAL ONE (10:09)
[2020-04-14] MEDS ORDERED: ePHEDrine 50 MG/ML VIAL ONE (10:09)
[2020-04-14] MEDS ORDERED: Ondansetron PF 4 MG/2 ML Vial ONE (10:09)
[2020-04-14] MEDS ORDERED: PHENYLEPHRINE-NS 100 MCG/ML 10 ML SYRINGE ONE (10:09)
[2020-04-14] MEDS ORDERED: PROPOFOL 200 MG/20 ML VIAL ONE (10:09)
--- NOTE | 2020-04-14 10:28 | RAD ---
KUB: HISTORY: Worsening right flank pain. Kidney stones. FINDINGS/IMPRESSION: A right-sided ureteral stent is present. There is a 4 mm calculus along the stent at L3 level and a 3 mm calculus just inferior to this at the L3-4 level. There is a 4-5 mm calculus in the projection of inferior pole of the right kidney. POS: [facility]
[2020-04-14] MEDS ORDERED: Iothalamate Meglumine 60% 50 ML VIAL FS ONE (11:09)
[2020-04-14] MEDS ORDERED: Famotidine/PF 20 mg/2ml Vial ONE (11:16)
[2020-04-14] MEDS ORDERED: Fentanyl 100 MCG/2 ML VIAL ONE (11:16)
[2020-04-14] MEDS ORDERED: Midazolam HCl 2 mg/2 ml Vial ONE (11:20)
--- NOTE | 2020-04-14 13:28 | OP ---
DATE OF PROCEDURE: 04/14/2020 PREOPERATIVE DIAGNOSES: Right proximal ureteral and right renal stones. POSTOPERATIVE DIAGNOSES: Right proximal ureteral and right renal stones. PROCEDURES PERFORMED: Cysto, removal of right stent, right retrograde, right flexible ureteroscopy with laser lithotripsy, stone retrieval, and stent replacements. ANESTHETIC: General. ESTIMATED BLOOD LOSS: Less than 100 mL. FINDINGS: She had [address] scan, two in the proximal ureter and one in the kidney. I think we got all three of those out. She does have some narrowing of her proximal ureter and we could only safely get the ureteral sheath up to about mid ureter. DRAINS PLACED: A 4.8 x 24 cm double-J stent with a string attached to it. DESCRIPTION OF PROCEDURE: After obtained written and verbal consent from the patient after receiving IV antibiotics, she was taken to the operating suite. She was placed in a supine position on the treatment table. PlexiPulses were placed on her lower extremities and turned on. She was given a general anesthetic and oral obturator intubation. She was placed in the dorsal lithotomy position. She was sterilely prepped and draped. The fluoroscopic unit was placed over her and a cartographic aide film was obtained. Cystoscopy was performed with a 22-Vietnamese sheath, this was well lubricated, passed under direct vision through the female urethra into the urinary bladder with aid of a 30-degree lens, a video camera and monitor. The bladder was filled and emptied number of times and then the distal end of the double-J stent was grasped and brought out through the urethral meatus and a guidewire was fed up across this. A dual-lumen ureteral catheter was placed over the guidewire about third of the way up the ureter, then contrast injected through the second port filling out the ureter both mid and proximal. A blue stiff guidewire was then passed over this up into the kidney. It looked like there were two stones you could see in the proximal right ureter which was somewhat dilated. We then went ahead and brought in a ureteral sheath, placed it over our guidewire, then with an obturator went up to about mid ureter. We removed the guidewire and removed the obturator. We then brought in a flexible ureteroscope only through the obturator and then manipulated the proximal ureter, which was somewhat narrowed into a dilated portion of the ureter that extended up in towards the renal pelvis. We encountered two stones and we went ahead and broke these up and then looked in the calyceal system, found another stone in the lower calyceal system and fragmented it. We then used a Nitinol basket to remove the largest of these fragments and we sent those off for stone analysis. We rechecked every calyx, found no other sizable fragment remaining, rechecked the renal pelvis and the dilated proximal ureter and then the mid ureter and distal ureter as we removed the sheath. No other stones noted. No abnormality noted. We then backloaded our guidewire through our cystoscope, passed a 5-Vietnamese Pollack catheter up into the region of renal pelvis and filled this out with contrast. There was no extravasation noted. No obstruction. No persistent filling defect. A guidewire was placed through this open-ended catheter and the open-ended catheter was removed and the stent was pushed up into place with aid of a pusher. There was a little bit of extravasation noted on a little bit of the delayed film as we were putting the stent just up at the region of the very proximal ureter/renal pelvis and may have just been from a little over distention of the renal pelvis. There was no extravasation from the bottom 3 quarter of the ureter where a sheath was. At this point, the bladder was drained. The instruments were removed. The stent was in good position fluoroscopically and endoscopically. The string was cut, exiting a couple of inches out of the urethral meatus. She was taken out of the dorsal lithotomy position, awakened, extubated, and taken by stretcher to recovery room. Job ID: [id number]
--- NOTE | 2020-04-14 13:30 | RAD ---
RETROGRADE IVP: 13 fluoroscopic images are presented from the OR. INDICATION: Urinary stone. Stent placement. FINDINGS/IMPRESSION: Initial image shows a right ureteral stent. There is a calculus adjacent to the stent consistent with ureteral calculus noted on recent CT. Subsequent images show opacification of the right collecting structures. The ureteral calculus is rem oval. Final image shows placement of double pigtail right ureteral stent. POS: AGW
== END 2020-04-14 14:28 | disposition home or self-care (01) ==
LOC: SDC 08:47
PROVIDERS: ATTEND Urology
PROC: 0TC38ZZ Extirpation of Matter from Right Kidney Pelvis, Via Natural or Artificial Opening Endoscopic (ICD-10-PCS; principal; 2020-04-14)
PROC: 0TC68ZZ Extirpation of Matter from Right Ureter, Via Natural or Artificial Opening Endoscopic (ICD-10-PCS; principal; 2020-04-14)
PROC: 0T768DZ Dilation of Right Ureter with Intraluminal Device, Via Natural or Artificial Opening Endoscopic (ICD-10-PCS; principal; 2020-04-14)
DX: N20.2 Calculus of kidney with calculus of ureter (principal); Z88.0 Allergy status to penicillin; Z88.6 Allergy status to analgesic agent; Z88.8 Allergy status to other drugs, medicaments and biological substances
CPT/HCPCS: 74018; 74420; 82365; 88300; J0690; J1100; J2250; J2405; J2704; J2765; J3010; J3490; S0028

== ENCOUNTER 2020-04-23 09:59 | Emergency (ER) | payer OTHER, SELFPAY ==
[2020-04-23] MEDS ORDERED: Morphine 4 MG/ML VIAL ONE (11:25)
[2020-04-23] MEDS ORDERED: Ondansetron PF 4 MG/2 ML Vial ONE (11:26)
[2020-04-23] MEDS ORDERED: Ketorolac Tromethamine 30 MG/ML VIAL ONE (11:26)
[2020-04-23 11:40] LABS: #Basophils 0.1 thou/uL (0.0-0.2); #Eosinphils 0.2 thou/uL (0.0-0.7); #Monocytes 0.5 thou/uL (0.11-0.59); #Neutrophils 3.3 thou/uL (1.40-6.50); %Basophils 0.9 % (0.0-1.0); %Eosinophils 3.1 % (0.0-10.0); %Monocytes 8.2 % (0.0-10.0); %Neutrophils 54.8 % (42.0-75.0); Hemoglobin 13.6 g/dL (12.0-16.0); Mean Corpuscular HGB CONC 33.1 g/dL (32.0-36.0); Mean Corpuscular Hemoglobin 29.6 pg (27.0-31.0); Mean Corpuscular Volume 89.3 fL (78.0-98.0); Mean Platelet Volume 7.4 fL (7.4-10.4); Platelet Count 259 thou/uL (130-400); RBC Distribution Width 11.5 % (11.5-14.5); Red Blood Cell (RBC) Count 4.61 mill/uL (4.20-5.40); White Blood Cell (WBC) Count 6.1 thou/uL (4.8-10.8)
--- NOTE | 2020-04-23 11:44 | CT ---
CT OF THE ABDOMEN AND PELVIS WITHOUT IV CONTRAST INDICATION: History of stent removal yesterday with removal of previously demonstrated ureteral calcu kaylee. COMPARISON: CT abdomen pelvis dated April 09, 2020 and IVP dated April 14, 2020 FINDINGS: The lack of IV contrast limits evaluation of the solid organs of the abdomen and pelvis. ABDOMEN: Lung bases: Clear Liver: No focal lesion. Gallbladder: Surgically absent Pancreas: Normal. Adrenal glands: Normal. Spleen: Normal. Kidneys and ureters: There is a stable 1 mm stone within the left mid kidney. There is persistent mod erate right hydronephrosis and hydroureter. There is inflammatory stranding surrounding the right ureter. There is some transition to normal caliber ureter within the right mid ureteral segment at ap proximately the L3-4 intervertebral level. No definite ureteral calculus is evident. The previously seen right ureteral stent has been removed. Vasculature: Normal. Lymph nodes:No lymphadenopathy. Free fluid in abdomen:No free fluid is evident. PELVIS: Small and large bowel: There are scattered colonic diverticula and a mild amount of retained stool wi thin the colon. The small bowel is of normal caliber. There is radiopaque material seen within loops of small bowel which may be related to medicinal tablets Appendix:Normal Bladder: Normal. Rectal and perirectal soft tissues:Normal. Reproductive structures: Normal. Free fluid in pelvis: No free fluid is evident. Lymphadenopathy pelvis: No lymphadenopathy is evident. Osseous structures: No acute osseous abnormality. No destructive osteolytic or osteoblastic lesion i s identified. There is scattered degenerative and osteoarthritic changes. Soft tissues:Normal. IMPRESSION: 1. Interval removal of the previously seen right ureteral stent. Persistent moderate right hydronephr osis and hydroureter. There is slight caliber change noted involving the mid right ureter which may reflect presence of possible scarring or inflammation of the right ureter. An ascending urinary tract infection could produce similar findings. Recommend correlation with urinary laboratories. No ureteral calculus is evident. There is stable left nephrolithiasis. 2. Other stable chronic findings as above.
[2020-04-23 11:58] LABS: ALT (SGPT) 22 U/L (8-55); AST (SGOT) 25 U/L (5-34); Albumin 3.9 g/dL (3.5-5.0); Alkaline Phosphatase 63 U/L (40-110); Anion Gap 13 mmol/L (10-20); BUN (Urea Nitrogen) 20 mg/dL (7.0-18.7); Bilirubin, Total 0.2 mg/dL (0.2-1.2); Calc. Creatinine Clearance 0 mL/min (70-130); Calcium 9.5 mg/dL (7.8-10.44); Carbon Dioxide 24 mmol/L (22-29); Chloride 106 mmol/L (98-107); Estimated GFR-MDRD 77; Globulin 2.9 g/dL (2.4-3.5); Glucose 100 mg/dL (70-105); Potassium 3.9 mmol/L (3.5-5.1); Protein, Total 6.8 g/dL (6.0-8.3); Sodium 139 mmol/L (136-145)
[2020-04-23 12:20] LABS: Bacteria/HPF None Seen HPF (None Seen); Bilirubin Negative (Negative); Blood, Urine 3+ (Negative); Clarity Clear (Clear); Glucose, Urine (Dipstick) Normal (Negative); Ketone, Urine Negative (Negative); Leukocyte 250 Leu/uL (Negative); Mucous/LPF 1+ LPF (<2+); Nitrite Negative (Negative); Protein, Urine (Dipstick) 30 mg/dL (Neg-Trace); RBC/HPF Greater than 50 HPF (0-3); Squamous Epithelial 0-3 HPF (0-3); Urobilinogen Normal mg/dL (Less than 2); WBC/HPF 21-50 HPF (0-3); pH, Urine 5.5 (5.0-9.0)
== END 2020-04-23 13:35 | disposition home or self-care (01) ==
LOC: ERS 09:59
DX: N99.89 Other postprocedural complications and disorders of genitourinary system (principal); R03.0 Elevated blood-pressure reading, without diagnosis of hypertension; N13.2 Hydronephrosis with renal and ureteral calculous obstruction; J44.9 Chronic obstructive pulmonary disease, unspecified; K21.9 Gastro-esophageal reflux disease without esophagitis; Z79.899 Other long term (current) drug therapy
CPT/HCPCS: 74176; 80053; 81003; 81015; 85025; 87086; 96374; 96375; J1885; J2270; J2405

== ENCOUNTER 2020-06-14 05:33 | Emergency (ER) | payer OTHER ==
[2020-06-14 05:58] LABS: #Basophils 0.1 thou/uL (0.0-0.2); #Eosinphils 0.2 thou/uL (0.0-0.7); #Lymphocytes 3.5 thou/uL (1.20-3.40); #Monocytes 0.7 thou/uL (0.11-0.59); #Neutrophils 3.7 thou/uL (1.40-6.50); %Basophils 1.3 % (0.0-1.0); %Eosinophils 2.4 % (0.0-10.0); %Monocytes 8.1 % (0.0-10.0); %Neutrophils 45.2 % (42.0-75.0); Hemoglobin 15.2 g/dL (12.0-16.0); Mean Corpuscular HGB CONC 31.7 g/dL (32.0-36.0); Mean Corpuscular Hemoglobin 28.3 pg (27.0-31.0); Mean Corpuscular Volume 89.3 fL (78.0-98.0); Mean Platelet Volume 7.1 fL (7.4-10.4); Platelet Count 265 thou/uL (130-400); RBC Distribution Width 12.7 % (11.5-14.5); Red Blood Cell (RBC) Count 5.38 mill/uL (4.20-5.40); White Blood Cell (WBC) Count 8.2 thou/uL (4.8-10.8)
[2020-06-14 06:19] LABS: ALT (SGPT) 37 U/L (8-55); AST (SGOT) 29 U/L (5-34); Albumin 3.7 g/dL (3.5-5.0); Alkaline Phosphatase 58 U/L (40-110); Anion Gap 11 mmol/L (10-20); BUN (Urea Nitrogen) 16 mg/dL (7.0-18.7); Bilirubin, Total 0.4 mg/dL (0.2-1.2); Calc. Creatinine Clearance 0 mL/min (70-130); Calcium 9.3 mg/dL (7.8-10.44); Carbon Dioxide 27 mmol/L (22-29); Chloride 106 mmol/L (98-107); Globulin 2.5 g/dL (2.4-3.5); Glucose 104 mg/dL (70-105); Lipase 18 U/L (8-78); Protein, Total 6.2 g/dL (6.0-8.3); Sodium 140 mmol/L (136-145)
[2020-06-14 06:42] LABS: Bilirubin Negative (Negative); Blood, Urine Trace (Negative); Clarity Extra Turbid (Clear); Glucose, Urine (Dipstick) Normal (Negative); Ketone, Urine Negative (Negative); Leukocyte 500 Leu/uL (Negative); Nitrite Negative (Negative); Protein, Urine (Dipstick) Negative (Neg-Trace); RBC/HPF 0-3 HPF (0-3); Specific Gravity, Urine 1.018 (1.002-1.036); Squamous Epithelial 0-3 HPF (0-3); Urobilinogen Normal mg/dL (Less than 2); WBC/HPF 21-50 HPF (0-3); pH, Urine 7.5 (5.0-9.0)
[2020-06-14 06:44] LABS: Bacteria/HPF 1+ HPF (None Seen)
--- NOTE | 2020-06-14 08:42 | RAD ---
Portable frontal chest radiograph: 06/14/2020 COMPARISON: 07/13/2015 HISTORY: Chest pain FINDINGS: Lungs are clear. Heart and mediastinal contours appear within normal limits. IMPRESSION: No acute findings.
== END 2020-06-14 07:23 | disposition home or self-care (01) ==
LOC: ERS 05:33
DX: N39.0 Urinary tract infection, site not specified (principal); R60.9 Edema, unspecified; K21.9 Gastro-esophageal reflux disease without esophagitis; J44.9 Chronic obstructive pulmonary disease, unspecified
CPT/HCPCS: 71045; 80053; 81003; 81015; 83690; 83880; 84484; 85025; 93005

== ENCOUNTER 2020-09-30 14:35 | Emergency (ER) | payer OTHER | END 2020-09-30 16:00 | disposition home or self-care (01) | LOC: ERS 14:35 | DX: G56.01 Carpal tunnel syndrome, right upper limb (principal); M65.4 Radial styloid tenosynovitis [de Quervain]; Z87.442 Personal history of urinary calculi | CPT/HCPCS: 29125 ==

== ENCOUNTER 2021-02-27 19:05 | Emergency (ER) | payer OTHER ==
[~2021-02-27 19:05] MED LIST changes: -Dexamethasone 20 MG/5 ML VIAL ONE; -Fentanyl 100 MCG/2 ML VIAL ONE; -Iothalamate Meglumine 60% 50 ML VIAL FS ONE; -Lidocaine 1% PF 5 ML VIAL ONE; -Midazolam HCl 2 mg/2 ml Vial ONE; -Morphine 4 MG/ML VIAL ONE; -Ondansetron PF 4 MG/2 ML Vial ONE; -PROPOFOL 200 MG/20 ML VIAL ONE; -Succinylcholine 200 MG/10 ml SYRINGE FS ONE; -Vancomycin 1 GM/200 ML BAG ONE; -cefTRIAXone\\ROCEPHIN 2 GM VIAL ONE; -ePHEDrine 50 MG/ML VIAL ONE; -traMADol HCl 50 MG TAB ONE
[2021-02-27 20:32] LABS: #Basophils 0.1 thou/uL (0.0-0.2); #Eosinphils 0.3 thou/uL (0.0-0.7); #Lymphocytes 2.3 thou/uL (1.20-3.40); #Monocytes 0.7 thou/uL (0.11-0.59); #Neutrophils 2.4 thou/uL (1.40-6.50); %Basophils 1.1 % (0.0-1.0); %Eosinophils 5.2 % (0.0-10.0); %Monocytes 11.3 % (0.0-10.0); %Neutrophils 42.3 % (42.0-75.0); Hemoglobin 14.1 g/dL (12.0-16.0); Mean Corpuscular Hemoglobin 30.7 pg (27.0-31.0); Mean Platelet Volume 7.4 fL (7.4-10.4); Platelet Count 219 thou/uL (130-400); RBC Distribution Width 13.1 % (11.5-14.5); Red Blood Cell (RBC) Count 4.58 mill/uL (4.20-5.40); White Blood Cell (WBC) Count 5.7 thou/uL (4.8-10.8)
[2021-02-27 20:33] LABS: Bilirubin Negative (Negative); Blood, Urine 2+ (Negative); Clarity Clear (Clear); Glucose, Urine (Dipstick) Normal (Negative); Ketone, Urine Trace mg/dL (Negative); Leukocyte 250 Leu/uL (Negative); Nitrite Negative (Negative); Protein, Urine (Dipstick) 10 mg/dL (Neg-Trace); Specific Gravity, Urine 1.032 (1.002-1.036); Squamous Epithelial 0-3 HPF (0-3); Urobilinogen Normal mg/dL (Less than 2); pH, Urine 5.5 (5.0-9.0)
[2021-02-27 20:34] LABS: Bacteria/HPF Rare-Few HPF (None Seen); Pregnancy Test - Urine (BHCG) Negative (Negative); Pregu Control Bar Appear? YES (CONTROL BAR); Specific Gravity 1.032 (1.002-1.036)
[2021-02-27 20:35] LABS: Pregu Control Background? CLEAR/WHITE (CLR/WHITE)
[2021-02-27 20:51] LABS: ALT (SGPT) 35 U/L (8-55); AST (SGOT) 39 U/L (5-34); Albumin 3.9 g/dL (3.5-5.0); Alkaline Phosphatase 79 U/L (40-110); Anion Gap 11 mmol/L (10-20); BUN (Urea Nitrogen) 21 mg/dL (7.0-18.7); Bilirubin, Total 0.2 mg/dL (0.2-1.2); Calc. Creatinine Clearance 0 mL/min (70-130); Calcium 10.3 mg/dL (7.8-10.44); Carbon Dioxide 23 mmol/L (22-29); Chloride 110 mmol/L (98-107); Globulin 3.3 g/dL (2.4-3.5); Glucose 112 mg/dL (70-105); Lipase 24 U/L (8-78); Potassium 3.9 mmol/L (3.5-5.1); Protein, Total 7.2 g/dL (6.0-8.3); Sodium 140 mmol/L (136-145)
== END 2021-02-27 23:33 | disposition home or self-care (01) ==
LOC: ERS 19:05
DX: R10.11 Right upper quadrant pain (principal); J44.9 Chronic obstructive pulmonary disease, unspecified
CPT/HCPCS: 36415; 74177; 80053; 81003; 81015; 81025; 83690; 85025; Q9967

== ENCOUNTER 2022-04-01 16:24 | Inpatient (IN) | payer OTHER ==
[2022-04-01 17:11] LABS: #Basophils 0.1 thou/uL (0.0-0.2); #Eosinphils 0.2 thou/uL (0.0-0.7); #Lymphocytes 3.2 thou/uL (1.20-3.40); #Monocytes 0.6 thou/uL (0.11-0.59); #Neutrophils 3.9 thou/uL (1.40-6.50); %Basophils 0.8 % (0.0-1.0); %Lymphocytes 39.7 % (21.0-51.0); %Monocytes 7.5 % (0.0-10.0); %Neutrophils 48.9 % (42.0-75.0); Hemoglobin 14.4 g/dL (12.0-16.0); Mean Corpuscular HGB CONC 33.8 g/dL (32.0-36.0); Mean Corpuscular Hemoglobin 30.7 pg (27.0-31.0); Mean Corpuscular Volume 90.6 fl (78.0-98.0); Mean Platelet Volume 7.2 fL (7.4-10.4); Platelet Count 247 10x3/uL (130-400); Red Blood Cell (RBC) Count 4.71 mill/uL (4.20-5.40)
[2022-04-01 17:32] LABS: ALT (SGPT) 31 U/L (8-55); AST (SGOT) 28 U/L (5-34); Albumin 3.7 g/dL (3.5-5.0); Alkaline Phosphatase 68 U/L (40-110); Anion Gap 14 mmol/L (10-20); BUN (Urea Nitrogen) 22 mg/dL (7.0-18.7); Bilirubin, Total 0.3 mg/dL (0.2-1.2); Calc. Creatinine Clearance 0 mL/min (70-130); Calcium 10.1 mg/dL (7.8-10.44); Carbon Dioxide 22 mmol/L (22-29); Chloride 106 mmol/L (98-107); Estimated GFR 95; Globulin 3.2 g/dL (2.4-3.5); Glucose 112 mg/dL (70-105); Potassium 4.1 mmol/L (3.5-5.1); Protein, Total 6.9 g/dL (6.0-8.3); Sodium 138 mmol/L (136-145)
[2022-04-01] MEDS ORDERED: Ondansetron ODT 4 MG TAB PO PRN (22:46)
[2022-04-01] MEDS ORDERED: methylPREDNISolone Sod Succ 40 MG VIAL IVP SCH (23:00)
[2022-04-01] MEDS ORDERED: Magnesium 2 GM/50 ML(in water) 2 GM in Premix Bag 1 BAG IVPB SCH (23:00)
[2022-04-01] MEDS ORDERED: guaiFENesin/DM ER PO SCH (23:00)
[2022-04-01] MEDS ORDERED: Benzonatate 100 MG CAP PO PRN (23:09)
[2022-04-01 23:38] VITALS: BMI 36.9
[2022-04-01 23:49] LABS: Magnesium 1.9 mg/dL (1.6-2.6)
[2022-04-02 02:01] LABS: SARS-CoV-2 NAA Rapid Test Not Detected (NotDetected)
[2022-04-02 04:58] LABS: #Lymphocytes 1.4 thou/uL (1.20-3.40); #Monocytes 0.1 thou/uL (0.11-0.59); #Neutrophils 5.8 thou/uL (1.40-6.50); %Basophils 0.2 % (0.0-1.0); %Eosinophils 0.2 % (0.0-10.0); %Lymphocytes 18.6 % (21.0-51.0); %Monocytes 1.8 % (0.0-10.0); %Neutrophils 79.2 % (42.0-75.0); Hemoglobin 14.3 g/dL (12.0-16.0); Mean Corpuscular HGB CONC 32.7 g/dL (32.0-36.0); Mean Corpuscular Hemoglobin 29.6 pg (27.0-31.0); Mean Corpuscular Volume 90.5 fl (78.0-98.0); Mean Platelet Volume 7.3 fL (7.4-10.4); Platelet Count 243 10x3/uL (130-400); RBC Distribution Width 12.1 % (11.5-14.5); Red Blood Cell (RBC) Count 4.83 mill/uL (4.20-5.40); White Blood Cell (WBC) Count 7.3 10x3/uL (4.8-10.8)
[2022-04-02] MEDS: methylPREDNISolone Sod Succ 40 MG VIAL IVP SCH ×3 (05:16→18:25)
[2022-04-02 05:45] LABS: Anion Gap 13 mmol/L (10-20); BUN (Urea Nitrogen) 18 mg/dL (7.0-18.7); Calc. Creatinine Clearance 140 mL/min (70-130); Calcium 9.9 mg/dL (7.8-10.44); Carbon Dioxide 23 mmol/L (22-29); Chloride 104 mmol/L (98-107); Estimated GFR 102; Glucose 160 mg/dL (70-105); Potassium 3.9 mmol/L (3.5-5.1); Sodium 136 mmol/L (136-145)
[2022-04-02] MEDS: Enoxaparin Sodium 40 MG/0.4 ML SYRINGE SC SCH (09:19)
[2022-04-02] MEDS ORDERED: Dicyclomine 10 MG CAP PO PRN (09:22)
[2022-04-02] MEDS: Famotidine 20 MG TAB PO SCH ×2 (12:19→20:22)
[2022-04-02] MEDS ORDERED: guaiFENesin/Codeine 200 mg/20 mg 10 ml Cup PO PRN (14:45)
[2022-04-02] MEDS: guaiFENesin/DM ER PO SCH ×2 (15:52→20:19)
[2022-04-02] MEDS: Nystatin 500,000 UNITS/5 ML UDCUP SSW SCH ×2 (18:21→20:23)
[2022-04-02] MEDS: Doxycycline 100 MG CAP PO SCH (20:23)
[2022-04-03] MEDS: methylPREDNISolone Sod Succ 40 MG VIAL IVP SCH ×4 (00:06→20:16)
[2022-04-03] MEDS: Melatonin 3 MG TAB PO PRN ×2 (00:24→20:16)
[2022-04-03 05:09] LABS: #Lymphocytes 1.1 thou/uL (1.20-3.40); #Monocytes 0.3 thou/uL (0.11-0.59); #Neutrophils 13.1 thou/uL (1.40-6.50); %Basophils 0.1 % (0.0-1.0); %Eosinophils 0.1 % (0.0-10.0); %Lymphocytes 7.5 % (21.0-51.0); %Monocytes 2.1 % (0.0-10.0); %Neutrophils 90.2 % (42.0-75.0); Hemoglobin 14.1 g/dL (12.0-16.0); Mean Corpuscular HGB CONC 32.2 g/dL (32.0-36.0); Mean Corpuscular Hemoglobin 29.5 pg (27.0-31.0); Mean Corpuscular Volume 91.5 fl (78.0-98.0); Mean Platelet Volume 7.4 fL (7.4-10.4); Platelet Count 252 10x3/uL (130-400); RBC Distribution Width 12.2 % (11.5-14.5); Red Blood Cell (RBC) Count 4.77 mill/uL (4.20-5.40); White Blood Cell (WBC) Count 14.6 10x3/uL (4.8-10.8)
[2022-04-03 05:27] LABS: Anion Gap 11 mmol/L (10-20); BUN (Urea Nitrogen) 20 mg/dL (7.0-18.7); Calc. Creatinine Clearance 140 mL/min (70-130); Calcium 9.6 mg/dL (7.8-10.44); Carbon Dioxide 21 mmol/L (22-29); Chloride 109 mmol/L (98-107); Estimated GFR 102; Glucose 178 mg/dL (70-105); Potassium 3.9 mmol/L (3.5-5.1); Sodium 137 mmol/L (136-145)
[2022-04-03] MEDS ORDERED: Metoprolol Tartrate 5 MG/5 ML VIAL IVP SCH (08:45)
[2022-04-03] MEDS ORDERED: Amiodarone 150 MG in Dextrose 5% in Water 100 ML IVPB SCH (09:30)
[2022-04-03] MEDS: Amiodarone 450 MG in Dextrose 5% in Water 250 ML IVPB SCH ×2 (10:03→21:49)
[2022-04-03] MEDS: Doxycycline 100 MG CAP PO SCH ×2 (10:17→20:16)
[2022-04-03] MEDS: Famotidine 20 MG TAB PO SCH ×2 (10:17→20:16)
[2022-04-03] MEDS: Metoprolol Tartrate 25 MG TAB PO SCH ×2 (10:17→17:45)
[2022-04-03] MEDS: guaiFENesin/DM ER PO SCH ×2 (10:17→20:16)
[2022-04-03] MEDS: Enoxaparin Sodium 40 MG/0.4 ML SYRINGE SC SCH (10:18)
[2022-04-03] MEDS: Nystatin 500,000 UNITS/5 ML UDCUP SSW SCH ×4 (10:36→20:17)
[2022-04-04 04:56] LABS: Anion Gap 9 mmol/L (10-20); BUN (Urea Nitrogen) 21 mg/dL (7.0-18.7); Calc. Creatinine Clearance 132 mL/min (70-130); Calcium 10.1 mg/dL (7.8-10.44); Carbon Dioxide 24 mmol/L (22-29); Chloride 107 mmol/L (98-107); Estimated GFR 95; Glucose 178 mg/dL (70-105); Potassium 4.7 mmol/L (3.5-5.1); Sodium 135 mmol/L (136-145)
[2022-04-04 05:28] LABS: Band 8 % (5-11); Hemoglobin 13.9 g/dL (12.0-16.0); Lymphocytes 9 % (21-51); MDiff Complete? YES; Mean Corpuscular HGB CONC 31.6 g/dL (32.0-36.0); Mean Corpuscular Hemoglobin 29.3 pg (27.0-31.0); Mean Corpuscular Volume 92.6 fl (78.0-98.0); Mean Platelet Volume 7.5 fL (7.4-10.4); Monocytes 9 % (0-10); Neutrophil 73 % (42-75); Platelet Count 274 10x3/uL (130-400); Platelet Morphology Comment Appears Adequate; RBC Distribution Width 12.5 % (11.5-14.5); RBC Morphology Normal; Reactive Lymphocytes 1 % (0-10); Red Blood Cell (RBC) Count 4.73 mill/uL (4.20-5.40); White Blood Cell (WBC) Count 21.1 10x3/uL (4.8-10.8)
[2022-04-04] MEDS: Metoprolol Tartrate 25 MG TAB PO SCH ×3 (06:12→18:41)
[2022-04-04] MEDS: methylPREDNISolone Sod Succ 40 MG VIAL IVP SCH (08:32)
[2022-04-04] MEDS: Famotidine 20 MG TAB PO SCH ×2 (08:32→20:26)
[2022-04-04] MEDS: Doxycycline 100 MG CAP PO SCH ×2 (08:32→20:26)
[2022-04-04] MEDS: guaiFENesin/DM ER PO SCH ×2 (08:33→20:27)
[2022-04-04] MEDS: Enoxaparin Sodium 40 MG/0.4 ML SYRINGE SC SCH (08:33)
[2022-04-04] MEDS: Nystatin 500,000 UNITS/5 ML UDCUP SSW SCH ×3 (13:09→20:25)
[2022-04-04] MEDS ORDERED: Communication Order-Pharmacy FS PRN (13:30)
[2022-04-04] MEDS: Melatonin 3 MG TAB PO PRN (20:26)
[2022-04-05] MEDS: Amiodarone 450 MG in Dextrose 5% in Water 250 ML IVPB SCH (03:10)
[2022-04-05] MEDS: Metoprolol Tartrate 25 MG TAB PO SCH ×3 (05:57→18:15)
[2022-04-05] MEDS ORDERED: Sodium Chloride 0.9% 1,000 ML IV SCH (06:00)
[2022-04-05] MEDS ORDERED: Iopamidol 370 76% 100 ML VIAL ONE (08:38)
[2022-04-05] MEDS: Nystatin 500,000 UNITS/5 ML UDCUP SSW SCH ×4 (08:55→20:57)
[2022-04-05] MEDS: Famotidine 20 MG TAB PO SCH ×2 (08:57→20:57)
[2022-04-05] MEDS ORDERED: FLU VACC QS2022-23(6MOS UP)/PF 60 MCG/0.5 ML SYRINGE IM ONE (09:00)
[2022-04-05] MEDS ORDERED: Midazolam HCl 2 mg/2 ml Vial ONE (10:26)
[2022-04-05] MEDS ORDERED: FENTANYL 50 MCG/ML 1 ML VIAL ONE (10:26)
[2022-04-05] MEDS ORDERED: Heparin 10,000 UNITS/ 10 ML VIAL ONE (10:27)
[2022-04-05] MEDS ORDERED: Lidocaine 1% PF 5 ML VIAL ONE (10:27)
[2022-04-05] MEDS ORDERED: Verapamil 5 MG/2 ML VIAL ONE (10:28)
[2022-04-05] MEDS ORDERED: Lidocaine 1% (PF) 30 ML VIAL ONE (11:55)
[2022-04-05] MEDS ORDERED: Sodium Chloride 0.9% 200 ML IV PRN (12:21)
[2022-04-05] MEDS ORDERED: Sodium Chloride 0.9% 500 ML IV SCH (12:30)
[2022-04-05] MEDS: Doxycycline 100 MG CAP PO SCH ×2 (13:44→20:57)
[2022-04-05] MEDS: guaiFENesin/DM ER PO SCH ×2 (13:44→20:57)
[2022-04-05] MEDS: methylPREDNISolone Sod Succ 40 MG VIAL IVP SCH (13:45)
[2022-04-05] MEDS ORDERED: Electrolyte Replacement Protocol FS SCH (17:45)
[2022-04-05] MEDS: Melatonin 3 MG TAB PO PRN (20:57)
[2022-04-06 04:31] LABS: #Lymphocytes 2.2 thou/uL (1.20-3.40); #Monocytes 0.7 thou/uL (0.11-0.59); #Neutrophils 10.3 thou/uL (1.40-6.50); %Basophils 0.2 % (0.0-1.0); %Eosinophils 0.2 % (0.0-10.0); %Lymphocytes 16.7 % (21.0-51.0); %Monocytes 5.5 % (0.0-10.0); %Neutrophils 77.4 % (42.0-75.0); Hemoglobin 15.5 g/dL (12.0-16.0); Mean Corpuscular HGB CONC 31.6 g/dL (32.0-36.0); Mean Corpuscular Hemoglobin 29.5 pg (27.0-31.0); Mean Corpuscular Volume 93.4 fl (78.0-98.0); Mean Platelet Volume 7.1 fL (7.4-10.4); Platelet Count 290 10x3/uL (130-400); RBC Distribution Width 12.3 % (11.5-14.5); Red Blood Cell (RBC) Count 5.24 mill/uL (4.20-5.40); White Blood Cell (WBC) Count 13.3 10x3/uL (4.8-10.8)
[2022-04-06 04:50] LABS: Phosphorus 3.7 mg/dL (2.3-4.7)
[2022-04-06 04:51] LABS: ALT (SGPT) 28 U/L (8-55); AST (SGOT) 16 U/L (5-34); Albumin 3.9 g/dL (3.5-5.0); Alkaline Phosphatase 62 U/L (40-110); Anion Gap 13 mmol/L (10-20); BUN (Urea Nitrogen) 18 mg/dL (7.0-18.7); Bilirubin, Total 0.5 mg/dL (0.2-1.2); Calc. Creatinine Clearance 121 mL/min (70-130); Calcium 10.4 mg/dL (7.8-10.44); Carbon Dioxide 26 mmol/L (22-29); Chloride 104 mmol/L (98-107); Estimated GFR 86; Globulin 3.1 g/dL (2.4-3.5); Glucose 128 mg/dL (70-105); Magnesium 2.2 mg/dL (1.6-2.6); Potassium 4.7 mmol/L (3.5-5.1); Sodium 138 mmol/L (136-145)
[2022-04-06] MEDS: Metoprolol Tartrate 25 MG TAB PO SCH ×3 (05:47→18:37)
[2022-04-06] MEDS: Doxycycline 100 MG CAP PO SCH ×2 (09:03→20:56)
[2022-04-06] MEDS: guaiFENesin/DM ER PO SCH (09:03)
[2022-04-06] MEDS: methylPREDNISolone Sod Succ 40 MG VIAL IVP SCH (09:03)
[2022-04-06] MEDS: Nystatin 500,000 UNITS/5 ML UDCUP SSW SCH ×3 (09:03→16:20)
[2022-04-06] MEDS: Famotidine 20 MG TAB PO SCH ×2 (09:03→20:56)
[2022-04-06] MEDS: guaiFENesin ER 600 MG TAB PO SCH (20:56)
[2022-04-06] MEDS: Melatonin 3 MG TAB PO PRN (20:57)
[2022-04-07 05:06] LABS: #Eosinphils 0.1 thou/uL (0.0-0.7); #Lymphocytes 3.4 thou/uL (1.20-3.40); #Monocytes 0.8 thou/uL (0.11-0.59); #Neutrophils 8.6 thou/uL (1.40-6.50); %Basophils 0.2 % (0.0-1.0); %Eosinophils 0.6 % (0.0-10.0); %Lymphocytes 26.4 % (21.0-51.0); %Monocytes 6.1 % (0.0-10.0); %Neutrophils 66.8 % (42.0-75.0); Hemoglobin 14.6 g/dL (12.0-16.0); Mean Corpuscular HGB CONC 31.9 g/dL (32.0-36.0); Mean Corpuscular Hemoglobin 29.5 pg (27.0-31.0); Mean Corpuscular Volume 92.5 fl (78.0-98.0); Mean Platelet Volume 7.4 fL (7.4-10.4); Platelet Count 266 10x3/uL (130-400); RBC Distribution Width 12.3 % (11.5-14.5); Red Blood Cell (RBC) Count 4.94 mill/uL (4.20-5.40); White Blood Cell (WBC) Count 12.8 10x3/uL (4.8-10.8)
[2022-04-07 05:15] LABS: Anion Gap 11 mmol/L (10-20); BUN (Urea Nitrogen) 22 mg/dL (7.0-18.7); Carbon Dioxide 27 mmol/L (22-29); Chloride 103 mmol/L (98-107); Potassium 4.2 mmol/L (3.5-5.1); Sodium 137 mmol/L (136-145)
[2022-04-07 05:16] LABS: ALT (SGPT) 27 U/L (8-55); AST (SGOT) 16 U/L (5-34); Albumin 3.7 g/dL (3.5-5.0); Alkaline Phosphatase 59 U/L (40-110); Bilirubin, Total 0.5 mg/dL (0.2-1.2); Calc. Creatinine Clearance 114 mL/min (70-130); Calcium 10.4 mg/dL (7.8-10.44); Estimated GFR 85; Globulin 2.7 g/dL (2.4-3.5); Glucose 107 mg/dL (70-105); Protein, Total 6.4 g/dL (6.0-8.3)
[2022-04-07] MEDS: Metoprolol Tartrate 25 MG TAB PO SCH ×3 (06:44→17:47)
[2022-04-07] MEDS: guaiFENesin ER 600 MG TAB PO SCH ×2 (12:37→20:12)
[2022-04-07] MEDS: Doxycycline 100 MG CAP PO SCH ×2 (12:37→20:11)
[2022-04-07] MEDS: methylPREDNISolone Sod Succ 40 MG VIAL IVP SCH (12:37)
[2022-04-07] MEDS: Famotidine 20 MG TAB PO SCH ×2 (12:55→20:12)
[2022-04-07] MEDS: Melatonin 3 MG TAB PO PRN (20:11)
[2022-04-07 22:46] VITALS: BP 133/77; TEMP 99.5
[2022-04-08] MEDS ORDERED: Famotidine 20 MG TAB PO SCH (01:00)
[2022-04-08] MEDS ORDERED: Pantoprazole 40 MG VIAL IVP SCH (01:15)
== END 2022-04-08 01:58 | disposition short-term general hospital (02) | DRG 308 ==
LOC: ERS 16:24 → 2SW 22:06 → OBSVTOIN 04-03 08:54 → IMCU/EMU 04-03 09:27 → 2NO 04-06 21:26
PROVIDERS: ADMIT Internal Medicine; ATTEND Internal Medicine
DX: I47.20 Ventricular tachycardia, unspecified (principal); J96.01 Acute respiratory failure with hypoxia; J44.1 Chronic obstructive pulmonary disease with (acute) exacerbation; Z77.22 Contact with and (suspected) exposure to environmental tobacco smoke (acute) (chronic); B34.8 Other viral infections of unspecified site; R13.12 Dysphagia, oropharyngeal phase; I49.3 Ventricular premature depolarization; J20.8 Acute bronchitis due to other specified organisms; I45.10 Unspecified right bundle-branch block; E66.9 Obesity, unspecified; Z68.36 Body mass index [BMI] 36.0-36.9, adult; Z88.6 Allergy status to analgesic agent; Z88.0 Allergy status to penicillin; Z88.8 Allergy status to other drugs, medicaments and biological substances; Z79.899 Other long term (current) drug therapy; Z90.49 Acquired absence of other specified parts of digestive tract; Z98.51 Tubal ligation status; Z80.0 Family history of malignant neoplasm of digestive organs
CPT/HCPCS: 36415; 36416; 71045; 71275; 74230; 80048; 80053; 83735; 84100; 84145; 84443; 84484; 85025; 85347; 85379; 87633; 87798; 93005; 93010; 93306; 93458; 94640; 94760; 96372; 96374; 96375; 96376; 99152; 99153; C9113; G0378; J0282; J1644; J1650; J2001; J2250; J2920; J3010; J3475; J7050; J7070; J7620; Q0162; Q9967; U0002; U0003; U0005

== ENCOUNTER 2022-04-19 15:28 | Emergency (ER) | payer OTHER ==
[2022-04-19] MEDS ORDERED: FENTANYL 50 MCG/ML 1 ML VIAL ONE ×2 (15:59→16:06)
[2022-04-19 16:01] LABS: #Eosinphils 0.1 thou/uL (0.0-0.7); #Monocytes 0.6 thou/uL (0.11-0.59); #Neutrophils 4.8 thou/uL (1.40-6.50); %Basophils 0.2 % (0.0-1.0); %Eosinophils 1.5 % (0.0-10.0); %Lymphocytes 26.5 % (21.0-51.0); %Monocytes 7.4 % (0.0-10.0); %Neutrophils 64.4 % (42.0-75.0); Hemoglobin 12.6 g/dL (12.0-16.0); Mean Corpuscular HGB CONC 33.7 g/dL (32.0-36.0); Mean Corpuscular Hemoglobin 30.8 pg (27.0-31.0); Mean Corpuscular Volume 91.5 fl (78.0-98.0); Mean Platelet Volume 7.7 fL (7.4-10.4); Platelet Count 180 10x3/uL (130-400); RBC Distribution Width 13.2 % (11.5-14.5); White Blood Cell (WBC) Count 7.4 10x3/uL (4.8-10.8)
[2022-04-19 16:17] LABS: PTT 28.9 sec (22.9-36.1); Prothrombin Time 13.8 sec (12.0-14.7)
[2022-04-19 16:25] LABS: ALT (SGPT) 22 U/L (8-55); AST (SGOT) 25 U/L (5-34); Albumin 3.8 g/dL (3.5-5.0); Alkaline Phosphatase 60 U/L (40-110); Anion Gap 15 mmol/L (10-20); BUN (Urea Nitrogen) 20 mg/dL (7.0-18.7); Bilirubin, Total 0.7 mg/dL (0.2-1.2); CK (CPK) 161 U/L (29-168); Calc. Creatinine Clearance 0 mL/min (70-130); Calcium 10.2 mg/dL (7.8-10.44); Carbon Dioxide 21 mmol/L (22-29); Chloride 108 mmol/L (98-107); Estimated GFR 82; Globulin 2.7 g/dL (2.4-3.5); Glucose 113 mg/dL (70-105); Lipase 20 U/L (8-78); Potassium 3.8 mmol/L (3.5-5.1); Protein, Total 6.5 g/dL (6.0-8.3); Sodium 140 mmol/L (136-145)
[2022-04-19 19:46] LABS: CKMB 5.5 ng/mL (0-6.6)
== END 2022-04-19 17:47 | disposition home or self-care (01) ==
LOC: ERS 15:28
DX: M79.662 Pain in left lower leg (principal); R58 Hemorrhage, not elsewhere classified; J44.9 Chronic obstructive pulmonary disease, unspecified; K21.9 Gastro-esophageal reflux disease without esophagitis
CPT/HCPCS: 71275; 80053; 82550; 82553; 83690; 83880; 84484; 85025; 85610; 85730; 93005; 96374; J3010; Q9967

== ENCOUNTER 2022-05-03 08:02 | Outpatient (CLI) | payer OTHER ==
[2022-05-03] MEDS ORDERED: GASTROGRAFIN 30 ML BOT ONE (11:12)
[2022-05-03] MEDS ORDERED: Iopamidol 370 76% 100 ML VIAL ONE (11:13)
== END 2022-05-03 08:03 | disposition home or self-care (01) ==
LOC: CT 08:02
PROVIDERS: ATTEND Internal Medicine Cardiovascular Disease
DX: R20.0 Anesthesia of skin (principal); Z95.810 Presence of automatic (implantable) cardiac defibrillator
CPT/HCPCS: 71260; 74177

== ENCOUNTER 2022-05-15 19:55 | Emergency (ER) | payer OTHER ==
[2022-05-15 20:51] LABS: #Eosinphils 0.1 thou/uL (0.0-0.7); #Lymphocytes 2.5 thou/uL (1.20-3.40); #Monocytes 0.7 thou/uL (0.11-0.59); %Basophils 0.1 % (0.0-1.0); %Eosinophils 1.4 % (0.0-10.0); %Lymphocytes 34.5 % (21.0-51.0); Hemoglobin 13.2 g/dL (12.0-16.0); Mean Corpuscular HGB CONC 33.3 g/dL (32.0-36.0); Mean Corpuscular Hemoglobin 30.1 pg (27.0-31.0); Mean Corpuscular Volume 90.3 fl (78.0-98.0); Mean Platelet Volume 7.5 fL (7.4-10.4); Platelet Count 230 10x3/uL (130-400); RBC Distribution Width 13.1 % (11.5-14.5); White Blood Cell (WBC) Count 7.2 10x3/uL (4.8-10.8)
[2022-05-15 21:13] LABS: ALT (SGPT) 22 U/L (8-55); AST (SGOT) 21 U/L (5-34); Albumin 3.8 g/dL (3.5-5.0); Alkaline Phosphatase 81 U/L (40-110); Anion Gap 14 mmol/L (10-20); BUN (Urea Nitrogen) 21 mg/dL (9.8-20.1); Bilirubin, Total 0.2 mg/dL (0.2-1.2); Calc. Creatinine Clearance 0 mL/min (70-130); Calcium 9.6 mg/dL (7.8-10.44); Carbon Dioxide 23 mmol/L (22-29); Chloride 110 mmol/L (98-107); Estimated GFR 85; Globulin 2.2 g/dL (2.4-3.5); Glucose 138 mg/dL (70-105); Potassium 4.3 mmol/L (3.5-5.1); Sodium 143 mmol/L (136-145)
== END 2022-05-15 21:55 | disposition home or self-care (01) ==
LOC: ERS 19:55
DX: R22.31 Localized swelling, mass and lump, right upper limb (principal); K21.9 Gastro-esophageal reflux disease without esophagitis; J44.9 Chronic obstructive pulmonary disease, unspecified
CPT/HCPCS: 36415; 71045; 80053; 84484; 85025; 85379; 93005

== ENCOUNTER 2022-08-27 20:46 | Emergency (ER) | payer OTHER ==
[2022-08-27] MEDS ORDERED: Ondansetron PF 4 MG/2 ML Vial ONE (21:24)
[2022-08-27] MEDS ORDERED: Pantoprazole 40 MG VIAL ONE (21:24)
[2022-08-27] MEDS ORDERED: Ondansetron ODT 4 MG TAB ONE (21:36)
[2022-08-27 21:38] LABS: #Eosinphils 0.2 thou/uL (0.0-0.7); #Lymphocytes 2.6 thou/uL (1.20-3.40); #Monocytes 0.5 thou/uL (0.11-0.59); #Neutrophils 3.3 thou/uL (1.40-6.50); %Basophils 0.7 % (0.0-1.0); %Eosinophils 2.7 % (0.0-10.0); %Lymphocytes 38.7 % (21.0-51.0); %Monocytes 7.4 % (0.0-10.0); %Neutrophils 50.5 % (42.0-75.0); Hemoglobin 14.7 g/dL (12.0-16.0); Mean Corpuscular HGB CONC 32.1 g/dL (32.0-36.0); Mean Corpuscular Volume 87.3 fl (78.0-98.0); Platelet Count 202 10x3/uL (130-400); RBC Distribution Width 13.6 % (11.5-14.5); Red Blood Cell (RBC) Count 5.23 mill/uL (4.20-5.40); White Blood Cell (WBC) Count 6.6 10x3/uL (4.8-10.8)
[2022-08-27 22:12] LABS: Bacteria/HPF None Seen HPF (None Seen); Bilirubin Negative (Negative); Blood, Urine 1+ (Negative); Clarity Turbid (Clear); Glucose, Urine (Dipstick) Normal (Negative); Ketone, Urine Negative (Negative); Leukocyte 25 Leu/uL (Negative); Nitrite Negative (Negative); Protein, Urine (Dipstick) Negative (Neg-Trace); Specific Gravity, Urine 1.019 (1.002-1.036); Squamous Epithelial 0-3 HPF (0-3); Urobilinogen Normal mg/dL (Less than 2); WBC/HPF 0-3 HPF (0-3)
[2022-08-27 22:19] LABS: ALT (SGPT) 36 U/L (8-55); AST (SGOT) 42 U/L (5-34); Albumin 4.1 g/dL (3.5-5.0); Alkaline Phosphatase 78 U/L (40-110); Anion Gap 14 mmol/L (10-20); BUN (Urea Nitrogen) 23 mg/dL (9.8-20.1); Bilirubin, Total 0.2 mg/dL (0.2-1.2); Calc. Creatinine Clearance 0 mL/min (70-130); Calcium 10.3 mg/dL (7.8-10.44); Carbon Dioxide 21 mmol/L (22-29); Chloride 108 mmol/L (98-107); Estimated GFR 88; Glucose 114 mg/dL (70-105); Lipase 21 U/L (8-78); Potassium 4.4 mmol/L (3.5-5.1); Protein, Total 7.1 g/dL (6.0-8.3); Sodium 139 mmol/L (136-145)
== END 2022-08-27 23:45 | disposition home or self-care (01) ==
LOC: ERS 20:46
DX: R10.13 Epigastric pain (principal); J44.9 Chronic obstructive pulmonary disease, unspecified; K21.9 Gastro-esophageal reflux disease without esophagitis
CPT/HCPCS: 80053; 81003; 81015; 83690; 84484; 85025; 93005; 96361; 96374; 96375; C9113; J2405; Q0162

== ENCOUNTER 2022-09-10 11:54 | Outpatient (CLI) | payer OTHER | END 2022-09-10 11:55 | disposition home or self-care (01) | LOC: ULT 11:54 | PROVIDERS: ATTEND Internal Medicine Cardiovascular Disease | DX: Z48.812 Encounter for surgical aftercare following surgery on the circulatory system (principal); I47.20 Ventricular tachycardia, unspecified; I44.2 Atrioventricular block, complete; Z95.810 Presence of automatic (implantable) cardiac defibrillator | CPT/HCPCS: 93306 ==

== ENCOUNTER 2022-12-22 03:23 | Emergency (ER) | payer BC, OTHER ==
[2022-12-22 06:48] LABS: SARS-CoV-2 NAA Rapid Test Not Detected (NotDetected)
== END 2022-12-22 04:44 | disposition home or self-care (01) ==
LOC: ERS 03:23
DX: J06.9 Acute upper respiratory infection, unspecified (principal); K21.9 Gastro-esophageal reflux disease without esophagitis; J44.9 Chronic obstructive pulmonary disease, unspecified; E11.9 Type 2 diabetes mellitus without complications; Z20.822 Contact with and (suspected) exposure to COVID-19; Z79.899 Other long term (current) drug therapy
CPT/HCPCS: 71045; U0002

== ENCOUNTER 2023-01-18 06:28 | Day surgery (SDC) | payer BC ==
[2023-01-14 11:28] VITALS: BMI 38.0
[2023-01-18] MEDS ORDERED: PROPOFOL 200 MG/20 ML VIAL ONE (08:08)
[2023-01-18] MEDS ORDERED: Esmolol 100 MG/10 ML VIAL ONE (08:08)
[2023-01-18] MEDS ORDERED: Lidocaine 1% PF 5 ML VIAL ONE (08:08)
== END 2023-01-18 10:10 | disposition home or self-care (01) ==
LOC: SDC 06:28
PROVIDERS: ATTEND Internal Medicine Gastroenterology
PROC: 0DB98ZX Excision of Duodenum, Via Natural or Artificial Opening Endoscopic, Diagnostic (ICD-10-PCS; principal; 2023-01-18)
PROC: 0DBK8ZZ Excision of Ascending Colon, Via Natural or Artificial Opening Endoscopic (ICD-10-PCS; principal; 2023-01-18)
PROC: 0DB78ZX Excision of Stomach, Pylorus, Via Natural or Artificial Opening Endoscopic, Diagnostic (ICD-10-PCS; principal; 2023-01-18)
DX: K31.7 Polyp of stomach and duodenum (principal); K63.5 Polyp of colon; K21.01 Gastro-esophageal reflux disease with esophagitis, with bleeding; K44.9 Diaphragmatic hernia without obstruction or gangrene; K29.70 Gastritis, unspecified, without bleeding; K57.30 Diverticulosis of large intestine without perforation or abscess without bleeding; R13.10 Dysphagia, unspecified; Z80.0 Family history of malignant neoplasm of digestive organs; E78.00 Pure hypercholesterolemia, unspecified; G47.33 Obstructive sleep apnea (adult) (pediatric); Z90.49 Acquired absence of other specified parts of digestive tract; Z95.810 Presence of automatic (implantable) cardiac defibrillator; Z95.0 Presence of cardiac pacemaker; Z88.0 Allergy status to penicillin; Z88.2 Allergy status to sulfonamides; Z91.041 Radiographic dye allergy status; Z91.010 Allergy to peanuts; Z91.013 Allergy to seafood; Z91.018 Allergy to other foods
CPT/HCPCS: 88305; J2704

== ENCOUNTER 2024-05-10 07:44 | Outpatient (CLI) | payer OTHER | END 2024-05-10 07:45 | disposition home or self-care (01) | LOC: BICRAD 07:44 | PROVIDERS: ATTEND Nurse Practitioner Family | DX: R06.02 Shortness of breath (principal); I51.7 Cardiomegaly | CPT/HCPCS: 71046 ==